=== PATIENT | female | born 1975 ===

== ENCOUNTER 2017-01-28 18:59 | Inpatient (IN) | payer MEDICAID ==
[2017-01-28 19:03] VITALS: BMI 33.8
--- NOTE | 2017-01-28 19:22 | ED PDOC ---
Arrival/HPI - General Chief Complaint: Psychiatric Evaluation Time Seen by Provider: 01/28/17 19:00 Historian: Patient - History of Present Illness Narrative History of Present Illness (Text): 01/28/17 19:22 A 41 year old female was brought in emergency department by EMS for PES transfer admission for depression and suicidal ideation. Patient denies any other complaints at this time. PMD: Dr. Joshua Shah Symptom Onset: Sudden Symptom Course: Unchanged Activities at Onset: Rest Context: Home Past Medical History - Provider Review Nursing Documentation Reviewed: Yes - Infectious Disease Hx of Infectious Diseases: None - Reproductive Menopause: No - Endocrine/Metabolic Hx Hypothyroidism: Yes - Psychiatric Hx Substance Use: No - Surgical History Hx Orthopedic Surgery: Yes (rt thumb surgery) Family/Social History - Physician Review Nursing Documentation Reviewed: Yes Family/Social History: No Known Family HX Smoking Status: Unknown If Ever Smoked Hx Alcohol Use: Yes Hx Substance Use: No Allergies/Home Meds Allergies/Adverse Reactions: Allergies alprazolam [From Xanax] Adverse Reaction (Mild, Verified 01/29/17 02:52) NAUSEA as per patient Home Medications: Home Meds Medication Instructions Recorded Confirmed Aspirin [Aspirin Chewable] 81 mg PO DAILY 01/28/17 01/29/17 Atenolol [Tenormin] 25 mg PO ONCE 01/28/17 01/29/17 FLUoxetine [Prozac] 40 mg PO ONCE 01/28/17 01/29/17 Fluoxetine HCl [Fluoxetine HCl] PO ONCE 01/28/17 Quetiapine Fumarate [Seroquel] 50 mg PO BID 01/28/17 01/29/17 Levothyroxine [Synthroid] 125 mcg PO DAILY 01/29/17 01/29/17 Review of Systems - Physician Review All systems were reviewed & negative as marked: Yes - Review of Systems Constitutional: absent: Fevers Respiratory: absent: SOB Neurological: absent: Headache Psychiatric: Depression, Suicidal Ideation Physical Exam Vital Signs Reviewed: Yes Vital Signs Temp Pulse Resp BP Pulse Ox 01/28/17 19:00 97.9 F 84 18 124/83 94 L Temperature: Afebrile Blood Pressure: Normal Pulse: Regular Respiratory Rate: Normal Appearance: Positive for: Well-Appearing, Non-Toxic, Comfortable Pain Distress: None Mental Status: Positive for: Alert and Oriented X 3 - Systems Exam Head: Present: Atraumatic, Normocephalic Pupils: Present: PERRL Extroacular Muscles: Present: EOMI Conjunctiva: Present: Normal Mouth: Present: Moist Mucous Membranes Neck: Present: Normal Range of Motion Respiratory/Chest: Present: Clear to Auscultation, Good Air Exchange. No: Respiratory Distress, Accessory Muscle Use Cardiovascular: Present: Regular Rate and Rhythm, Normal S1, S2. No: Murmurs Abdomen: Present: Normal Bowel Sounds. No: Tenderness, Distention, Peritoneal Signs Back: Present: Normal Inspection Upper Extremity: Present: Normal Inspection. No: Cyanosis, Edema Lower Extremity: Present: Normal Inspection. No: Edema Neurological: Present: GCS=15, CN II-XII Intact, Speech Normal Skin: Present: Warm, Dry, Normal Color. No: Rashes Psychiatric: Present: Alert, Oriented x 3, Depressed Mood, Suicidal Ideation Medical Decision Making ED Course and Treatment: 01/28/17 19:20 Impression: A 41 year old female with depression and suicidal ideation. Plan: -- Reassess and disposition Progress Notes: - Medication Orders Current Medication Orders: Acetaminophen (Tylenol 325mg Tab) 650 mg PO Q4H PRN PRN Reason: Pain, Mild (1-3) Al Hydrox/Mg Hydrox/Simethicone (Maalox Plus 30 Ml) 30 ml PO DAILY PRN PRN Reason: Indigestion / Heartburn Aspirin (Aspirin Chewable) 81 mg PO DAILY [facility] Atenolol (Tenormin) 25 mg PO DAILY [facility] Fluoxetine HCl (Prozac) 40 mg PO DAILY [facility] Ibuprofen (Motrin Tab) 600 mg PO Q4 PRN PRN Reason: Pain, moderate (4-7) Levothyroxine Sodium (Synthroid) 125 mcg PO 0600 [facility] Magnesium Hydroxide (Milk Of Magnesia) 30 ml PO DAILY PRN PRN Reason: Constipation Quetiapine Fumarate (Seroquel) 50 mg PO AMHS [facility] PRN Reason: Protocol Last Admin: 01/28/17 23:01 Dose: 50 mg - Scribe Statement The provider has reviewed the documentation as recorded by the Gage Malcolm Provider Scribe Attestation: All medical record entries made by the Scribjames were at my direction and personally dictated by me. I have reviewed the chart and agree that the record accurately reflects my personal performance of the history, physical exam, medical decision making, and the department course for this patient. I have also personally directed, reviewed, and agree with the discharge instructions and disposition. Disposition/Present on Arrival - Present on Arrival Any Indicators Present on Arrival: No History of DVT/PE: No History of Uncontrolled Diabetes: No Urinary Catheter: No History of Decub. Ulcer: No History Surgical Site Infection Following: None - Disposition Have Diagnosis and Disposition been Completed?: Yes Diagnosis: Anxiety, Suicidal ideation Disposition: HOSPITALIZED Disposition Time: 20:00 Condition: GOOD
[2017-01-28] MEDS ORDERED: Alum-Mag Hydrox-Simethicone Susp (30 mL) PO PRN (22:28)
[2017-01-28] MEDS ORDERED: Magnesium Hydroxide Susp 30 ml UD PO PRN (22:28)
--- NOTE | 2017-01-29 05:09 | PCM.BM ---
<Kenn,Lita - Last Filed: 01/29/17 05:06> Treatment Plan Problems - Problems identified on initial assessmt anxiety Date Initiated: 01/28/17 Time Initiated: 23:00 Assessment reference: NA Status: Active Treatment assets and liabiliti Patient Assests: cooperative, ADL independent, good support system, negotiates basic needs Patient Liabilities: relationship conflicts - Milieu Protocol Maintain good personal hygiene: daily Encourage regular showers, daily Remind patient to perform daily oral care Conduct patient checks and document Observation sheet: Q15 minutes Maintain personal safety: daily Educate patient to report safety concerns to staff, every shift Monitor environment for contraband/sharps Medication safety: Monitor for expected outcome, potential side effects: every shift, Assess barriers to learning: every shift, Assess readiness for medication education: every shift Family Contact Family involvement: Family/SO is involved Family contact: Patient agrees to contact - Goals for Treatment Patient goals for treatment: to learn new coping strategies to decrease anxiety Discharge/Continuing Care - Education Needs Education Needs: Patient Medication, Patient Diagnosis/Disease Process, Patient Coping Skills, Patient Placement options, Patient Community resources, Patient Aftercare Safety Plan - Discharge Discharge Criteria: Free of Suicidal thoughts, Ability to care for self <Cuca Davis - Last Filed: 01/29/17 09:12> - Diagnosis (1) MDD (major depressive disorder) Status: Acute Interventions: 01/29/17 09:12 Psychoeducation Psychopharmacology/adjustment of medications as needed/ monitoring possible side effects Evaluate pt on daily basis Compliance with medications and follow up appointments Suicide and homicide risk assessment and prevention Relapse prevention Reduction of symptoms Improve functional status Family intervention As outpatient: cognitive behavioral therapy/interpersonal psychotherapy/ psychodynamic psychotherapy/problem-solving therapy (2) PTSD (post-traumatic stress disorder) Status: Acute Interventions: 01/29/17 09:13 Psychoeducation Psychopharmacology/adjustment of medications as needed/ monitoring possible side effects Evaluate pt on daily basis Compliance with medications and follow up appointments Suicide and homicide risk assessment and prevention, coping strategies, safety plan Reduction of symptoms Relaxation techniques and breathing exercises Improve functional status Family intervention As outpatient: cognitive behavioral therapy <Tracey Juarez - Last Filed: 02/01/17 08:13>
[2017-01-29 07:00] VITALS: O2SAT 96
[2017-01-29 07:08] LABS: CHOLESTEROL 142 mg/dL (130-200); GLUCOSE,FASTING 86 mg/dL (65-110)
[2017-01-29] MEDS: Levothyroxine 125 MCG TAB PO SCH (07:14)
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
[2017-01-29] MEDS: Hydrocortisone 1% Cream (30 GM) TOP SCH (16:56)
[2017-01-30] MEDS: Levothyroxine 125 MCG TAB PO SCH (06:47)
[2017-01-30] MEDS: Hydrocortisone 1% Cream (30 GM) TOP SCH ×2 (09:20→17:35)
--- NOTE | 2017-01-30 11:39 | PCM.PYCHPN ---
Psychiatric Progress Note - Psychiatric Progress Note Patient seen today, length of contact: 25min Patient Chief Complaint: "I am little better today" Problems Identified/Issues Discussed: Suicide/ homicide prevention, past psychiatric h/o, current psychiatric symptoms , medical problems, risk/benefits and alternatives of medications, medications compliance, coping strategies, substance abuse h/o, relapse prevention, importance of follow up with psychiatrist and therapist, discharge plan. Medical Problems: Patient has hypothyroidism, HTN, patient obviously obese. Diagnostic Results: Lab Results 01/29/17 06:40: Fasting Glucose 86, Triglycerides 95, Cholesterol 142, LDL Cholesterol Direct 104, HDL Cholesterol 30 01/29/17 06:40: RPR Nonreactive 01/29/17 06:40: TSH 3rd Generation 1.68 Vital Signs Temp Pulse Pulse Resp BP Pulse Ox 01/30/17 08:55 72 106/66 01/29/17 16:40 75 108/73 01/29/17 08:55 79 129/78 01/29/17 07:00 97.7 F 79 20 129/78 96 01/29/17 04:11 78 18 01/29/17 03:20 98.5 F 78 18 106/69 01/28/17 19:00 97.9 F 84 18 124/83 94 L DSM 5 Symptoms Update: shortly patient is 41 year old female, self reported history of depression as well as anxiety, more than 5 psychiatric admissions to the multiple hospitals, one suicidal attempt in 2013 H and overdose, patient was transferred from the other hospital for evaluation and stabilization of worsening of depression, anxiety, possible suicidal ideation with a plan to cut her wrists, pt refused to be discharged from other hospital. Patient needs further evaluation and stabilization as well as medication adjustment. Patient was seen today at the [facility], patient presented to have good personal hygiene, good ADLs. patient has childlike demeanor, pt said that she feels " much better",pt reported to have a good night sleep. pt was seen by medical team for the rash. pt presented to be emotionally labile, at times anxious. as per RN report pt is compliant with meds, no behavioral incidents, no agitation or aggression. Impression: DSM 5 Diagnosis: MDD PTSD Medication Change: Yes (increased yesterday) Medical Record Reviewed: Yes Consults ordered or reviewed: medical consult appreciated Mental Status Examination - Cognitive Function Orientation: Person, Place, Situation Memory: Intact Attention: Poor Concentration: Poor Association: WNL Fund of Knowledge: WNL - Mood Mood: Depressed, Anxious - Affect Affect: Constricted - Speech Speech: Appropriate - Formal Thought Process Formal Thought Process: No Impairment - Suicidal Ideation Suicidal Ideation: No - Homicidal Ideation Homicidal Ideation: No Goal/Treatment Plan - Goal/Treatment Plan Need for Continued Stay: Remain at risks for inpatient hospitalization, Severe depression anxiety, Discharge may exacerbated symptoms, Failed transitioning, Severe functional impairment Progress Toward Problem(s) and Goals/Treatment Plan: Milieu, structure, supportive therapy ativan 0.5mg po bid for anxiety and catatonia We will continue her current medications: Aspirin [Aspirin Chewable] 81 mg PO DAILY Atenolol [Tenormin] 25 mg PO ONCE daily FLUoxetine [Prozac] to 50 mg PO daily will continue Quetiapine Fumarate [Seroquel] 50 mg PO BID mood stabilization, anxiety Levothyroxine [Synthroid] 125 mcg PO DAILY medical consult will call for collaterals will monitor closely SW evaluation Estimated Date of D/C: 02/03/17 (will monitor closely)
[2017-01-30] MEDS: Nystatin 100,000 Units/gm Cream(15 gm) TOP SCH ×2 (13:40→17:41)
[2017-01-31] MEDS: Levothyroxine 125 MCG TAB PO SCH (06:25)
[2017-01-31 06:34] VITALS: RESP 20
[2017-01-31] MEDS: Hydrocortisone 1% Cream (30 GM) TOP SCH ×2 (12:49→17:58)
[2017-01-31] MEDS: Nystatin 100,000 Units/gm Cream(15 gm) TOP SCH ×3 (12:50→18:00)
--- NOTE | 2017-01-31 16:54 | PCM.PYCHPN ---
Psychiatric Progress Note - Psychiatric Progress Note Patient seen today, length of contact: 30min Patient Chief Complaint: "I am much better, I feel very good" Problems Identified/Issues Discussed: Suicide/ homicide prevention, past psychiatric h/o, current psychiatric symptoms , medical problems, risk/benefits and alternatives of medications, medications compliance, coping strategies, substance abuse h/o, relapse prevention, importance of follow up with psychiatrist and therapist, discharge plan. Medical Problems: Patient has hypothyroidism, HTN, patient obviously obese. Diagnostic Results: Lab Results 01/29/17 06:40: Fasting Glucose 86, Triglycerides 95, Cholesterol 142, LDL Cholesterol Direct 104, HDL Cholesterol 30 01/29/17 06:40: RPR Nonreactive 01/29/17 06:40: TSH 3rd Generation 1.68 Vital Signs Temp Pulse Pulse Resp BP Pulse Ox 01/30/17 08:55 72 106/66 01/29/17 16:40 75 108/73 01/29/17 08:55 79 129/78 01/29/17 07:00 97.7 F 79 20 129/78 96 01/29/17 04:11 78 18 01/29/17 03:20 98.5 F 78 18 106/69 01/28/17 19:00 97.9 F 84 18 124/83 94 L DSM 5 Symptoms Update: shortly patient is 41 year old female, self reported history of depression as well as anxiety, more than 5 psychiatric admissions to the multiple hospitals, one suicidal attempt in 2013 H and overdose, patient was transferred from the other hospital for evaluation and stabilization of worsening of depression, anxiety, possible suicidal ideation with a plan to cut her wrists, pt refused to be discharged from other hospital. Patient needs further evaluation and stabilization as well as medication adjustment. Patient was seen today at the thx team meeting, patient presented to have good personal hygiene, good ADLs. patient has childlike demeanor, pt said that she feels "much better",pt reported to have a good night sleep. pt asked to be d/c tomorrow, pt said that her mother and father need to have help. pt gave permission to the to contact her mother. pt was seen by medical team for the rash. pt presented to be emotionally labile, at times anxious. as per RN report pt is compliant with meds, no behavioral incidents, no agitation or aggression. Impression: DSM 5 Diagnosis: MDD PTSD Medication Change: Yes (increased yesterday) Medical Record Reviewed: Yes Consults ordered or reviewed: medical consult appreciated Mental Status Examination - Cognitive Function Orientation: Person, Place, Situation Memory: Intact Attention: Poor (improved) Concentration: Poor (improved) Association: WNL Fund of Knowledge: WNL - Mood Mood: Depressed (denied), Anxious (better) - Affect Affect: Constricted (but reactive, mood congruent) - Speech Speech: Appropriate - Formal Thought Process Formal Thought Process: No Impairment - Suicidal Ideation Suicidal Ideation: No - Homicidal Ideation Homicidal Ideation: No Goal/Treatment Plan - Goal/Treatment Plan Need for Continued Stay: Remain at risks for inpatient hospitalization, Severe depression anxiety, Discharge may exacerbated symptoms, Failed transitioning, Severe functional impairment Progress Toward Problem(s) and Goals/Treatment Plan: Milieu, structure, supportive therapy ativan 0.5mg po bid for anxiety and catatonia We will continue her current medications: Aspirin [Aspirin Chewable] 81 mg PO DAILY Atenolol [Tenormin] 25 mg PO ONCE daily FLUoxetine [Prozac] to 50 mg PO daily will continue Quetiapine Fumarate [Seroquel] 50 mg PO BID mood stabilization, anxiety Levothyroxine [Synthroid] 125 mcg PO DAILY medical consult will call for collaterals will monitor closely SW evaluation collaterals from mother, sw will call her Estimated Date of D/C: 02/01/17 (will monitor closely)
[2017-02-01] MEDS: Levothyroxine 125 MCG TAB PO SCH (06:13)
[2017-02-01 06:43] VITALS: BP 100/60; TEMP 97.6
[2017-02-01] MEDS: Hydrocortisone 1% Cream (30 GM) TOP SCH (09:05)
[2017-02-01] MEDS: Nystatin 100,000 Units/gm Cream(15 gm) TOP SCH (09:05)
[2017-02-01 09:17] VITALS: PULSE 73
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
== END 2017-02-01 14:29 | disposition home or self-care (01) | DRG 426 ==
LOC: ED 18:59 → ERH 19:17 → PSYC 20:36
PROVIDERS: ADMIT Psychiatry & Neurology Psychiatry; ATTEND Psychiatry & Neurology Psychiatry
DX: F32.9 Major depressive disorder, single episode, unspecified (principal); F43.12 Post-traumatic stress disorder, chronic; F41.9 Anxiety disorder, unspecified; I10 Essential (primary) hypertension; E03.9 Hypothyroidism, unspecified; L29.9 Pruritus, unspecified; R21 Rash and other nonspecific skin eruption; R45.851 Suicidal ideations; E66.9 Obesity, unspecified; Z68.33 Body mass index [BMI] 33.0-33.9, adult; Z79.82 Long term (current) use of aspirin

== ENCOUNTER 2017-02-23 19:47 | Emergency (ER) | payer MEDICAID ==
[2017-02-23 19:56] VITALS: BMI 33.4
--- NOTE | 2017-02-23 20:11 | ED PDOC ---
Arrival/HPI - General Chief Complaint: Anxiety Time Seen by Provider: 02/23/17 19:52 Historian: Patient - History of Present Illness Narrative History of Present Illness (Text): 02/23/17 20:15 A 41 year old female, whose past medical history includes anxiety and depression , presents to the emergency department complaining of anxiety. Patient reports feeling anxious when she visited her aunt here in the hospital upstairs. She took her Ativan prior and takes Seroquel at night. Patient states she is feeling better at this time. Patient denies of any nausea, vomiting, chest pain , shortness of breath, suicidal ideation, homicidal ideation, or any other complaints. PMD: Dr. Joshua Shah Time/Duration: Prior to Arrival Symptom Onset: Gradual Symptom Course: Improving Past Medical History - Provider Review Nursing Documentation Reviewed: Yes - Infectious Disease Hx of Infectious Diseases: None - Cardiac Hx Cardiac Disorders: No - Pulmonary Hx Respiratory Disorders: No - Neurological Hx Neurological Disorder: No - HEENT Hx HEENT Disorder: No - Renal Hx Renal Disorder: No - Endocrine/Metabolic Hx Hypothyroidism: Yes - Hematological/Oncological Hx Blood Disorders: No - Integumentary Hx Dermatological Disorder: No - Musculoskeletal/Rheumatological Other/Comment: tendonitis. right thumb post trigger finger surgery 1 yr ago. - Gastrointestinal Hx Gastrointestinal Disorders: No - Genitourinary/Gynecological Hx Genitourinary Disorders: No - Psychiatric Hx Anxiety: Yes Hx Substance Use: No - Surgical History Hx Orthopedic Surgery: Yes (rt thumb surgery) - Anesthesia Hx Anesthesia: No Family/Social History - Physician Review Nursing Documentation Reviewed: Yes Family/Social History: No Known Family HX Smoking Status: Unknown If Ever Smoked Hx Alcohol Use: Yes Hx Substance Use: No Allergies/Home Meds Allergies/Adverse Reactions: Allergies alprazolam [From Xanax] Adverse Reaction (Mild, Verified 02/23/17 19:55) NAUSEA as per patient Review of Systems - Physician Review All systems were reviewed & negative as marked: Yes - Review of Systems Respiratory: absent: SOB Cardiovascular: absent: Chest Pain Gastrointestinal: absent: Nausea, Vomiting Psychiatric: Anxiety. absent: Suicidal Ideation, Other (homicidal ideation) Physical Exam Vital Signs Reviewed: Yes Vital Signs Temp Pulse Resp BP Pulse Ox 02/23/17 20:17 16 99 02/23/17 20:14 98.0 F 79 16 126/97 H 99 Temperature: Afebrile Blood Pressure: Normal Pulse: Regular Respiratory Rate: Normal Appearance: Positive for: Well-Appearing Pain Distress: None Mental Status: Positive for: Alert and Oriented X 3 - Systems Exam Head: Present: Atraumatic, Normocephalic Pupils: Present: PERRL Extroacular Muscles: Present: EOMI Conjunctiva: Present: Normal Mouth: Present: Moist Mucous Membranes Neck: Present: Normal Range of Motion Respiratory/Chest: Present: Clear to Auscultation, Good Air Exchange. No: Respiratory Distress, Accessory Muscle Use Cardiovascular: Present: Regular Rate and Rhythm, Normal S1, S2. No: Murmurs Abdomen: Present: Normal Bowel Sounds. No: Tenderness, Distention, Peritoneal Signs Back: Present: Normal Inspection Upper Extremity: Present: Normal Inspection. No: Cyanosis, Edema Lower Extremity: Present: Normal Inspection. No: Edema Neurological: Present: GCS=15, CN II-XII Intact, Speech Normal Skin: Present: Warm, Dry, Normal Color. No: Rashes Psychiatric: Present: Alert, Oriented x 3, Normal Insight, Normal Concentration Medical Decision Making ED Course and Treatment: 02/23/17 20:14 Impression: 41 year old female with anxiety. Physical exam is benign Plan: -- Reassess and disposition Prior Visits: Notes and results from previous visits were reviewed. Patient was last seen in the emergency department on 01/28/2017 for depression and suicidal ideation. Patient was admitted. Progress Notes: - Scribe Statement The provider has reviewed the documentation as recorded by the Gage Mccallum Provider Scribe Attestation: All medical record entries made by the Gage were at my direction and personally dictated by me. I have reviewed the chart and agree that the record accurately reflects my personal performance of the history, physical exam, medical decision making, and the department course for this patient. I have also personally directed, reviewed, and agree with the discharge instructions and disposition. Disposition/Present on Arrival - Present on Arrival Any Indicators Present on Arrival: No History of DVT/PE: No History of Uncontrolled Diabetes: No Urinary Catheter: No History of Decub. Ulcer: No History Surgical Site Infection Following: None - Disposition Have Diagnosis and Disposition been Completed?: Yes Diagnosis: Anxiety Disposition: HOME/ ROUTINE Disposition Time: 20:10 Patient Plan: Discharge Condition: GOOD Discharge Instructions (ExitCare): Anxiety (ED) Additional Instructions: Continue your current meds/follow up with your doctor as scheduled Forms: [employer] (Albanian)
[2017-02-23 20:15] VITALS: BP 126/97; PULSE 79; RESP 16; TEMP 98; O2SAT 99
== END 2017-02-23 20:17 | disposition home or self-care (01) ==
LOC: ED 19:47
DX: F41.9 Anxiety disorder, unspecified (principal)

== ENCOUNTER 2017-04-04 14:35 | Emergency (ER) | payer MEDICAID ==
[2017-04-04 15:20] VITALS: BMI 36.9
[2017-04-04 16:03] LABS: BASO # 0.03 K/mm3 (0.0-2.0); BASO % 0.4 % (0.0-3.0); EOS # 0.1 (0.0-0.7); EOS % 1.5 % (1.5-5.0); GRAN # 5.17 (1.4-6.5); GRAN % 64.2 % (50.0-68.0); HEMATOCRIT 33.4 % (36.0-48.0); LYMPH % 24.3 % (22.0-35.0); MEAN CELL VOLUME 78.2 fl (80.0-105.0); MEAN CORPUSCULAR HEMOGLOBIN 25.3 pg (25.0-35.0); MEAN CORPUSCULAR HGB CONC 32.3 g/dl (31.0-37.0); MEAN PLATELET VOLUME 9.6 fl (7.0-11.0); MONO # 0.8 (0.1-0.6); MONO % 9.6 % (1.0-6.0); RED CELL DISTRIBUTION WIDTH 14.7 % (11.5-14.5); WHITE BLOOD COUNT 8.1 10^3/ul (4.5-11.0)
[2017-04-04 16:09] LABS: ALB/GLOB RATIO 1.3 (1.1-1.8); ALKALINE PHOSPHATASE 97 U/L (38-126); ALT/SGPT 26 U/L (7-56); AST/SGOT 23 U/L (14-36); BILIRUBIN,TOTAL 0.4 mg/dL (0.2-1.3); BLOOD UREA NITROGEN 12 mg/dL (7-21); CALCIUM 8.6 mg/dL (8.4-10.5); CARBON DIOXIDE 26 mmol/L (21-33); CHLORIDE 105 mmol/L (98-107); GFR AFRICAN-AMERICAN > 60; GLUCOSE,RANDOM 94 mg/dL (70-110); SODIUM 140 mmol/L (132-148); TOTAL PROTEIN 7.1 g/dL (5.8-8.3)
[2017-04-04 16:12] LABS: PH,URINE 6.5 (4.7-8.0); URINE BILIRUBIN NEGATIVE (NEGATIVE); URINE BLOOD NEGATIVE (NEGATIVE); URINE GLUCOSE (UA) NEGATIVE (NEGATIVE); URINE KETONE NEGATIVE (NEGATIVE); URINE LEUKOCYTE ESTERASE SMALL Leu/uL (NEGATIVE); URINE PROTEIN NEGATIVE mg/dL (<30 mg/dL); URINE UROBILINOGEN 0.2 E.U./dL (<1 E.U./dL)
[2017-04-04 16:21] LABS: URINE APPEARANCE CLEAR (CLEAR); URINE COLOR YELLOW (YELLOW)
[2017-04-04 16:25] LABS: URINE BACTERIA MOD (NEG)
[2017-04-04 19:28] VITALS: TEMP 98
--- NOTE | 2017-04-04 19:45 | ED PDOC ---
Arrival/HPI - General Historian: Patient - General Chief Complaint: Anxiety Time Seen by Provider: 04/04/17 14:56 - History of Present Illness Narrative History of Present Illness (Text): 04/04/17 19:42 41-year-old female presents today with anxiety depression and suicidal ideation. Patient states she has a history of depression and has multiple prior admissions for depression. She denies chest pain or shortness of breath. Denies fevers or chills. Patient states she started new medication about 2 weeks ago without any improvement in her symptoms. Patient is requesting inpatient hospitalization for her depression. (Magda Belcher) Past Medical History - Provider Review Nursing Documentation Reviewed: Yes - Travel History Have you recently traveled outside [place] w/in the past 3 mons?: No - Infectious Disease Hx of Infectious Diseases: None - Reproductive Menopause: No - Cardiac Hx Cardiac Disorders: No - Pulmonary Hx Respiratory Disorders: No - Neurological Hx Neurological Disorder: No - HEENT Hx HEENT Disorder: No - Renal Hx Renal Disorder: No - Endocrine/Metabolic Hx Hypothyroidism: Yes - Hematological/Oncological Hx Blood Disorders: No - Integumentary Hx Dermatological Disorder: No - Musculoskeletal/Rheumatological Other/Comment: tendonitis. right thumb post trigger finger surgery 1 yr ago. - Gastrointestinal Hx Gastrointestinal Disorders: No - Genitourinary/Gynecological Hx Genitourinary Disorders: No - Psychiatric Hx Anxiety: Yes Hx Depression: Yes Hx Schizophrenia: Yes Hx Substance Use: No - Surgical History Hx Orthopedic Surgery: Yes (rt thumb surgery) - Anesthesia Hx Anesthesia: No Family/Social History - Physician Review Nursing Documentation Reviewed: Yes Family/Social History: Unknown Family HX Smoking Status: Unknown If Ever Smoked Hx Alcohol Use: Yes Hx Substance Use: No Allergies/Home Meds Allergies/Adverse Reactions: Allergies alprazolam [From Xanax] Adverse Reaction (Mild, Verified 02/23/17 19:55) NAUSEA as per patient Home Medications: Home Meds Medication Instructions Recorded Confirmed Divalproex [Depakote] 500 mg PO BID 04/04/17 04/04/17 QUEtiapine [Seroquel] 25 mg PO AMHS 04/04/17 04/04/17 Review of Systems - Review of Systems Constitutional: absent: Fatigue, Fevers Respiratory: absent: SOB, Cough Cardiovascular: absent: Chest Pain, Palpitations Gastrointestinal: absent: Abdominal Pain, Nausea, Vomiting Genitourinary Female: absent: Dysuria Musculoskeletal: absent: Arthralgias Skin: absent: Rash, Pruritis Psychiatric: Anxiety, Depression, Suicidal Ideation Physical Exam Vital Signs Reviewed: Yes Temperature: Afebrile Blood Pressure: Normal Pulse: Tachycardic Respiratory Rate: Normal Appearance: Positive for: Well-Appearing, Non-Toxic, Comfortable Pain Distress: None Mental Status: Positive for: Alert and Oriented X 3, other (Anxious) - Systems Exam Head: Present: Atraumatic Mouth: Present: Moist Mucous Membranes Neck: Present: Normal Range of Motion Respiratory/Chest: Present: Clear to Auscultation, Good Air Exchange. No: Respiratory Distress, Accessory Muscle Use Cardiovascular: Present: Tachycardic Abdomen: No: Tenderness, Distention, Rebound, Guarding Back: Present: Normal Inspection Upper Extremity: Present: Normal ROM Lower Extremity: Present: Normal ROM Neurological: Present: GCS=15, Speech Normal Skin: Present: Warm, Dry, Normal Color. No: Rashes Psychiatric: Present: Alert, Oriented x 3, Anxious, Depressed Mood, Suicidal Ideation Vital Signs Temp Pulse Resp BP Pulse Ox 04/04/17 22:00 86 16 140/78 99 04/04/17 18:00 98 F 97 H 19 145/90 98 04/04/17 15:50 98.1 F 90 18 121/67 100 04/04/17 15:00 98 F 85 20 126/71 98 04/04/17 14:40 99.3 F 106 H 20 124/85 98 Medical Decision Making ED Course and Treatment: 04/04/17 22:09 Pt seen and evaluated by PES screener Brandee, who discussed with psychiatrist clarification operator. Pt psychiatrically and medically cleared for discharge home. Instructed to f/u with [facility] clinic outpt. Pt agreeable with plan. (Shai Liang) 04/04/17 19:44 Patient is nontoxic well-appearing in no distress . anxious, depressed. CBC WNL CMP WNL Tylenol WNL Salicylate WNL Alcohol level WNL Urine drug screen wnl UA; wnl cxr: wnl ekg NSR at 87b/m No st elevations, normal axis, normal intervals. pt is medically cleared for PES evaluation Patient was seen and evaluated by PES velma: BRANDEE 04/04/17 21:32 case signed out to dr liang pending PEs disposition (Magda Belcher) - Lab Interpretations Microbiology Results: Microbiology Results 04/04/17 16:45 Urine,Clean Catch Urine Culture - Final 10-50,000 CFU/ML. MULTIPLE SPECIES. PROBABLE CONTAMINATION. Lab Results: 04/04/17 15:29 04/04/17 15:29 Lab Results 04/04/17 15:29: Alcohol, Quantitative < 10 04/04/17 15:29: Salicylates < 1 L, Acetaminophen < 10.0 L 04/04/17 15:29: Urine Opiates Screen Negative, Urine Methadone Screen Negative, Ur Barbiturates Screen Negative, Ur Phencyclidine Scrn Negative, Ur Amphetamines Screen Negative, U Benzodiazepines Scrn Negative, U Oth Cocaine Metabols Negative, U Cannabinoids Screen Negative 04/04/17 15:29: Sodium 140, Potassium 4.0, Chloride 105, Carbon Dioxide 26, Anion Gap 13, BUN 12, Creatinine 0.7, Est GFR ( Amer) > 60, Est GFR (Non- Af Amer) > 60, Random Glucose 94, Calcium 8.6, Total Bilirubin 0.4, AST 23, ALT 26, Alkaline Phosphatase 97, Total Protein 7.1, Albumin 4.0, Globulin 3.2, Albumin/Globulin Ratio 1.3 04/04/17 15:29: Urine Color Yellow, Urine Appearance Clear, Urine pH 6.5, Ur Specific Stevens 1.020, Urine Protein Negative, Urine Glucose (UA) Negative, Urine Ketones Negative, Urine Blood Negative, Urine Nitrate Negative, Urine Bilirubin Negative, Urine Urobilinogen 0.2, Ur Leukocyte Esterase Small H, Urine RBC 1 - 3, Urine WBC 2 - 5, Ur Epithelial Cells 4 - 5, Urine Bacteria Mod , Urine Other Fiber 04/04/17 15:29: WBC 8.1, RBC 4.27, Hgb 10.8 L, Hct 33.4 L, MCV 78.2 L, MCH 25.3 , MCHC 32.3, RDW 14.7 H, Plt Count 362, MPV 9.6, Gran % 64.2, Lymph % (Auto) 24.3, [place] % (Auto) 9.6 H, Eos % (Auto) 1.5, Baso % (Auto) 0.4, Gran # 5.17, Lymph # 2.0, [place] # 0.8 H, Eos # 0.1, Baso # 0.03 - RAD Interpretation Radiology Orders: 04/04/17 14:59 CHEST PORTABLE [RAD] Stat - Medication Orders Current Medication Orders: Discontinued Medications Lorazepam (Ativan) 0.5 mg PO ONCE ONE PRN Reason: Protocol Stop: 04/04/17 17:52 Last Admin: 04/04/17 20:28 Dose: 0.5 mg Disposition/Present on Arrival - Present on Arrival Any Indicators Present on Arrival: No History of DVT/PE: No History of Uncontrolled Diabetes: No Urinary Catheter: No History of Decub. Ulcer: No History Surgical Site Infection Following: None - Disposition Have Diagnosis and Disposition been Completed?: Yes Disposition Time: 22:10 Patient Plan: Discharge - Disposition Diagnosis: Anxiety Disposition: HOME/ ROUTINE Condition: GOOD Referrals: Joshua Shah MD [Primary Care Provider] - Follow up with primary Forms: [employer] (Khmer)
[2017-04-04 23:50] VITALS: BP 140/78; PULSE 86; RESP 16; O2SAT 99
--- NOTE | 2017-04-05 07:31 | RAD ---
HISTORY: PES eval COMPARISON: No prior. FINDINGS: LUNGS: No active pulmonary disease. PLEURA: No significant pleural effusion identified, no pneumothorax apparent. CARDIOVASCULAR: Normal. OSSEOUS STRUCTURES: No significant abnormalities. VISUALIZED UPPER ABDOMEN: Normal. OTHER FINDINGS: None. IMPRESSION: No acute cardiopulmonary disease appreciated.
--- NOTE | 2017-04-05 17:06 | CARD ---
APPROVED REPORT EKG Measurement Heart [id number] <Conclusion> Normal sinus rhythm Normal ECG
== END 2017-04-04 23:50 | disposition home or self-care (01) ==
LOC: ED 14:35
DX: F41.9 Anxiety disorder, unspecified (principal)